=== PATIENT | female | born 1955 | race Caucasian/White ===

== ENCOUNTER 2016-09-04 08:14 | Emergency (ER) | payer OTHER ==
--- NOTE | ~2016-09-04 | CT52 ---
[facility] A Service of [facility] RADIOLOGY TEXT RESULTS PATIENT: NOREEN TATE LOCATION: [facility] : 53 UNIT #: [id number] AGE: [address]: Teressa Harrison APRN SEX: F ORDER DR: [id number] [facility] [address] [place], [place] [address] [id number] E MR#: [id number] Acc #: [id number] NAME: NOREEN TATE : 1955 SEX: F STUDY DATE/TIME: 09/04/2016 8:35 UNIT: [facility] ROOM: STUDY DESCRIPTION: CT Cervical Spine Wo Cont Attending Physician: Teressa Harrison A.P.R.N. Ordering Physician: Physician Non-Staff Primary Care Physician: Marques Pittman M.D. MEDICAL IMAGING REPORT This report is preliminary unless electronic signature is present EXAM CT cervical spine, 09/04/2016 HISTORY EtOH. Fell this a.m. Hit head left side on wall. Left-sided head pain. Left-sided neck pain. Stiffness. TECHNIQUE This CT exam was performed with one or more of the following radiation dose reduction techniques: automatic exposure control, adjustment of mA and/or kV according to patient size, and iterative reconstruction. FINDINGS CT cervical spine performed. Bone and soft tissue windows reviewed. Sagittal, coronal reconstructions performed. Visualized portions of brain unremarkable. The visualized paranasal sinuses and mastoid air cells are clear. Visualized nasopharyngeal, oropharyngeal, pharyngeal mucosal, retropharyngeal spaces, superior mediastinum, lung apices, thyroid, submandibular and parotid glands unremarkable. No adenopathy. Carotid arterial calcifications. No traumatic appearing paraspinal soft tissue abnormality. Cervical spine alignment normal. Vertebral body heights, intervertebral disc space heights, facet joint relationships normal. No fracture. C2-C3: Small posterior central disc bulge. No spinal stenosis. Neural foramina normal. C3-C4: Posterior central disc bulge/protrusion. Mild central spinal canal narrowing. Possible anterior cord contact. No definite cord compression. Neural foramina patent. [facility] A Service of [facility] RADIOLOGY TEXT RESULTS PATIENT: NOREEN TATE LOCATION: [facility] #: [id number] : 53 UNIT #: [id number] AGE: [address]: Teressa Harrison APRN SEX: F ORDER DR: C4-C5: No disc bulge or herniation. Spinal canal diameter normal. Neural foramina normal. C5-C6, C6-C7, C7-T1, T1-T2: No significant disc bulge or herniation. Spinal canal diameter normal. Neural foramina patent without evidence of exiting nerve impingement. IMPRESSION 1. No traumatic fracture or malalignment. 2. Posterior central disc bulge/protrusion C3-C4. Anterior central cord contact without evidence of cord compression. There is mild central spinal canal narrowing. 3. Small posterior disc bulge C2-C3. No significant spinal canal narrowing. 4. The neural foramina are patent throughout the visualized cervical spine without evidence of exiting nerve impingement. 5. No traumatic paraspinal soft tissue abnormality. 6. Carotid arterial calcifications. Correlate clinically. Consider further evaluation with elective carotid ultrasound if felt clinically warranted. Dictated by... Best Dye M.D. THIS IS AN ELECTRONICALLY VERIFIED REPORT Best Dye M.D. at 09/05/2016 6:12 PM [place] TD: 09/04/2016 10:16 JOB #: [id number] MEDICAL IMAGING REPORT Page 1 of 1 COPY
--- NOTE | ~2016-09-04 | CT71 ---
[facility] A Service of [facility] & [facility] RADIOLOGY TEXT RESULTS PATIENT: NOREEN TATE LOCATION: [facility] : 53 UNIT #: [id number] AGE: [address]: Teressa Harrison APRN SEX: F ORDER DR: [id number] [facility] [address] [place], [place] [address] [id number] E MR#: [id number] Acc #: [id number] NAME: NOREEN TATE : 1955 SEX: F STUDY DATE/TIME: 09/04/2016 8:59 UNIT: [facility] ROOM: STUDY DESCRIPTION: CT Head Wo Contrast Attending Physician: Teressa Harrison A.P.R.N. Ordering Physician: Physician Non-Staff Primary Care Physician: Marques Pittman M.D. MEDICAL IMAGING REPORT This report is preliminary unless electronic signature is present EXAM CT head, 09/04/2016 HISTORY EtOH. Fell this a.m. Hit head left side on wall. Left-sided head pain. Left side neck stiffness. TECHNIQUE This CT exam was performed with one or more of the following radiation dose reduction techniques: automatic exposure control, adjustment of mA and/or kV according to patient size, and iterative reconstruction. FINDINGS CT of the head performed skull base through vertex without intravenous contrast. Comparison 12/27/2014. Brainstem unremarkable. Cerebellum and cerebral hemispheres show normal [place] matter-white matter differentiation. No hemorrhage. No evidence of acute cortical ischemia. The midline structures are nondisplaced. The basal ganglia are intact. Ventricles, cisterns and sulci show mild generalized enlargement consistent with mild generalized atrophy. The intraorbital soft tissues are unremarkable. The visualized paranasal sinuses and mastoid air cells show mild mucosal thickening frontal, ethmoid, maxillary sinuses. No indication of acute sinusitis. No fracture. No intra or extraaxial mass effect or abnormal intracranial fluid collection. Posterior superior left parietal scalp soft tissue swelling/contusion involving an area approximately 4.4 cm in diameter and about 1.0 cm thick. No soft tissue defect, subcutaneous air or radiodense foreign body. IMPRESSION 1. Mild atrophic change in the brain but no acute appearing abnormality. STS. [facility] A Service of [facility] & [facility] RADIOLOGY TEXT RESULTS PATIENT: NOREEN TATE LOCATION: [facility] : 53 UNIT #: [id number] AGE: [address]: Teressa Harrison APRN SEX: F ORDER DR: If patient has ongoing neurologic symptoms, consider follow-up imaging. 2. No fracture. 3. Posterior superior left parietal scalp contusion/soft tissue swelling. Area measures about 4.4 cm in diameter and about 1.0 cm in thickness. No subcutaneous air or radiodense foreign body. 4. Mild mucosal thickening in paranasal sinuses as described above. No indication of acute sinusitis. 5. Cavernous carotid arterial calcifications. Dictated by... Best Dye M.D. THIS IS AN ELECTRONICALLY VERIFIED REPORT Best Dye M.D. at 09/05/2016 6:12 PM [place] TD: 09/04/2016 09:57 JOB #: [id number] MEDICAL IMAGING REPORT Page 1 of 1 COPY
[~2016-09-04 08:14] MED LIST: BLOOD PRESSURE; FLEXERIL10 MG PO; METFORMIN HCL850 MG; MOTRIN600 MG PO; PEN-VEE K PO; SIMVASTATIN80 MG PO; TYLENOL #3 PO; VICODIN 5/1 TAB 5/50 PO
== END 2016-09-04 10:17 | disposition home or self-care (01) ==
LOC: CED 08:14
DX: S06.0X9A Concussion with loss of consciousness of unspecified duration, initial encounter (principal); S13.9XXA Sprain of joints and ligaments of unspecified parts of neck, initial encounter; E11.9 Type 2 diabetes mellitus without complications; I10 Essential (primary) hypertension; F17.200 Nicotine dependence, unspecified, uncomplicated; Z79.899 Other long term (current) drug therapy; W01.0XXA Fall on same level from slipping, tripping and stumbling without subsequent striking against object, initial encounter; Y92.009 Unspecified place in unspecified non-institutional (private) residence as the place of occurrence of the external cause
CPT/HCPCS: 70450; 72125; 99283